=== PATIENT | male | born 1990 | race Caucasian/White ===

== ENCOUNTER 2019-12-01 13:47 | Emergency (ER) | payer SELFPAY ==
--- NOTE | 2019-12-01 15:00 | EDPHYS ---
Physician Documentation [facility] Name: Fabricio Kasper Age: 29 yrs Sex: Male : 1990 Arrival Date: 12/01/2019 Time: 13:54 Bed 18 Private MD: ED Physician Jad Leblanc HPI: 12/01 14:29 This 29 yrs old Male presents to ER via Ambulatory with complaints of Elbow maria teresa Injury. 14:29 The patient or guardian complains of decreased range of motion, pain, that is acute. maria teresa The complaints affect the left elbow. Context: The problem was sustained at a sports field or court, resulted from a direct blow. Onset: The symptoms/episode began/occurred just prior to arrival. Treatment prior to arrival includes: no previous treatment. Modifying factors: The symptoms are alleviated by remaining still, the symptoms are aggravated by movement. Associated signs and symptoms: The patient has no apparent associated signs or symptoms. Severity of symptoms: At their worst the symptoms were moderate, in the emergency department the symptoms are unchanged. Historical: - Allergies: 14:10 PENICILLINS; hb - Home Meds: 14:10 None [Active]; hb - PMHx: 14:10 None; hb - PSHx: 14:10 None; hb - Immunization history:: Adult Immunizations up to date. - Coronavirus screen:: The patient has NOT traveled to [place], [place], or [place] in the past 14 days. The patient has NOT had contact with known/suspected case of Coronavirus? Proceed with normal triage procedures. - Social history:: Smoking status: Patient/guardian denies using tobacco, Stopped _ months ago 1. - Family history:: not pertinent. - Ebola Screening: : No symptoms or risks identified at this time. ROS: 14:29 Constitutional: Negative for fever, chills, and weight loss, Eyes: Negative for injury, maria teresa pain, redness, and discharge, ENT: Negative for injury, pain, and discharge, Neck: Negative for injury, pain, and swelling, Cardiovascular: Negative for chest pain, palpitations, and edema, Respiratory: Negative for shortness of breath, cough, wheezing, and pleuritic chest pain, Abdomen/GI: Negative for abdominal pain, nausea, vomiting, diarrhea, and constipation, Back: Negative for injury and pain, : Negative for injury, bleeding, discharge, and swelling, Skin: Negative for injury, rash, and discoloration, Neuro: Negative for headache, weakness, numbness, tingling, and seizure, Psych: Negative for depression, anxiety, suicide ideation, homicidal ideation, and hallucinations, Allergy/Immunology: Negative for hives, rash, and allergies, Endocrine: Negative for neck swelling, polydipsia, polyuria, polyphagia, and marked weight changes, Hematologic/Lymphatic: Negative for swollen nodes, abnormal bleeding, and unusual bruising. 14:29 MS/extremity: Positive for decreased range of motion, pain, tenderness, of the left elbow. Exam: 14:29 Constitutional: This is a well developed, well nourished patient who is awake, alert, maria teresa and in no acute distress. Head/Face: Normocephalic, atraumatic. Eyes: Pupils equal round and reactive to light, extra-ocular motions intact. Lids and lashes normal. Conjunctiva and sclera are non-icteric and not injected. Cornea within normal limits. Periorbital areas with no swelling, redness, or edema. ENT: Nares patent. No nasal discharge, no septal abnormalities noted. Tympanic membranes are normal and external auditory canals are clear. Oropharynx with no redness, swelling, or masses, exudates, or evidence of obstruction, uvula midline. Mucous membranes moist. Neck: Trachea midline, no thyromegaly or masses palpated, and no cervical lymphadenopathy. Supple, full range of motion without nuchal rigidity, or vertebral point tenderness. No Meningismus. Chest/axilla: Normal chest wall appearance and motion. Nontender with no deformity. No lesions are appreciated. Cardiovascular: Regular rate and rhythm with a normal S1 and S2. No gallops, murmurs, or rubs. Normal PMI, no JVD. No pulse deficits. Respiratory: Lungs have equal breath sounds bilaterally, clear to auscultation and percussion. No rales, rhonchi or wheezes noted. No increased work of breathing, no retractions or nasal flaring. Abdomen/GI: Soft, non-tender, with normal bowel sounds. No distension or tympany. No guarding or rebound. No evidence of tenderness throughout. Back: No spinal tenderness. No costovertebral tenderness. Full range of motion. Male : Normal genitalia with no discharge or lesions. Skin: Warm, dry with normal turgor. Normal color with no rashes, no lesions, and no evidence of cellulitis. Neuro: Awake and alert, GCS 15, oriented to person, place, time, and situation. Cranial nerves II-XII grossly intact. Motor strength 5/5 in all extremities. Sensory grossly intact. Cerebellar exam normal. Normal gait. Psych: Awake, alert, with orientation to person, place and time. Behavior, mood, and affect are within normal limits. 14:29 Musculoskeletal/extremity: ROM: limited active range of motion, limited passive range of motion, Circulation is intact in all extremities. Sensation intact. Compartment Syndrome exam of affected extremity: is normal. DVT Exam: negative Homans' sign noted on exam, no appreciated bluish discoloration, no erythema, no increased warmth, pain, swelling, tenderness. Vital Signs: 14:10 BP 111 / 74; Pulse 93; Resp 16; Temp 97.1; Pulse Ox 99% on R/A; Weight 131.54 kg; hb Height 6 ft. 5 in. (195.58 cm); Pain 6/10; 14:10 Body Mass Index 34.39 (131.54 kg, 195.58 cm) hb MDM: 14:11 Patient medically screened. [facility] 14:29 Data reviewed: vital signs, nurses notes, lab test result(s). [facility] 12/01 14:12 Order name: Elbow Left 3 View XRAY [facility] 12/01 14:12 Order name: Ice pack; Complete Time: 14:12 [facility] 12/01 14:28 Order name: Sling; Complete Time: 16:19 [facility] 12/01 14:58 Order name: Splint - Elbow - Posterior; Complete Time: 16:19 [facility] Administered Medications: 15:06 Drug: Motrin 800 mg Route: PO; sv 16:00 Follow up: Response: No adverse reaction sv 15:06 Drug: [place] 10 mg-325 mg 1 tabs {Note: rass0.} Route: PO; sv 16:00 Follow up: Response: No adverse reaction; Pain is decreased; RASS: Alert and Calm (0) sv Disposition: 12/01/19 14:59 Discharged to Home. Impression: Pain in left elbow, Fracture of head of radius - non displaced. - Condition is Stable. - Discharge Instructions: Joint Pain, Musculoskeletal Pain, Radial Head Fracture, Radial Head Fracture, [id number]. - Prescriptions for Ibuprofen 600 mg Oral Tablet - take 1 tablet by ORAL route every 6 hours As needed take with food; 20 tablet. Tylenol- Codeine #3 300-30 mg Oral Tablet - take 2 tablets by ORAL route every 6 hours As needed; 26 tablet. - Medication Reconciliation Form, Thank You Letter, Antibiotic Education, Prescription Opioid Use form. - Follow up: Private Physician; When: 2 - 3 days; Reason: Recheck today's complaints, Continuance of care, Re-evaluation by your physician. Follow up: Seth Oliver; When: 2 - 3 days; Reason: Recheck today's complaints, Re-evaluation by your physician. - Problem is new. - Symptoms have improved. Signatures: Dispatcher [employer] Anna Espinal RN RN sv Anderson, Corey, MD MD cha Baxter, Heather, RN RN Corrections: (The following items were deleted from the chart) 14:40 14:13 Elbow Left 3 View ordered. [facility] 14:57 14:34 Jose wrap-joint ordered. maria teresa morel 16:02 14:59 12/01/2019 14:59 Discharged to Home. Impression: Pain in left elbow; Fracture of sv head of radius - non displaced. Condition is Stable. Discharge Instructions: Joint Pain, Musculoskeletal Pain. Prescriptions for Ibuprofen 600 mg Oral Tablet - take 1 tablet by ORAL route every 6 hours As needed take with food; 20 tablet, Tylenol-Codeine #3 300-30 mg Oral Tablet - take 2 tablets by ORAL route every 6 hours As needed; 26 tablet. and Forms are Medication Reconciliation Form, Thank You Letter, Antibiotic Education, Prescription Opioid Use. Follow up: Private Physician; When: 2 - 3 days; Reason: Recheck today's complaints, Continuance of care, Re-evaluation by your physician. Follow up: Seth Oliver; When: 2 - 3 days; Reason: Recheck today's complaints, Re-evaluation by your physician. Problem is new. Symptoms have improved. maria teresa
--- NOTE | 2019-12-01 15:00 | ER ---
Nurse's Notes [facility] Name: Fabricio Kasper Age: 29 yrs Sex: Male : 1990 Arrival Date: 12/01/2019 Time: 13:54 Bed 18 Private MD: Diagnosis: Pain in left elbow;Fracture of head of radius-non displaced Presentation: 12/01 14:08 Presenting complaint: Was sparring, felt elbow pop while in an armbar, now c/o left hb elbow pain 6/10. Transition of care: patient was not received from another setting of care. Onset of symptoms was December 01, 2019 at 13:30. Risk Assessment: Do you want to hurt yourself or someone else? Patient reports no desire to harm self or others. Care prior to arrival: None. 14:08 Method Of Arrival: Ambulatory 14:08 Acuity: SOFIA 4 hb 14:17 Initial Sepsis Screen: Does the patient meet any 2 criteria? No. Patient's initial sv sepsis screen is negative. Does the patient have a suspected source of infection? No. Patient's initial sepsis screen is negative. Historical: - Allergies: 14:10 PENICILLINS; hb - Home Meds: 14:10 None [Active]; hb - PMHx: 14:10 None; hb - PSHx: 14:10 None; hb - Immunization history:: Adult Immunizations up to date. - Coronavirus screen:: The patient has NOT traveled to [place], [place], or [place] in the past 14 days. The patient has NOT had contact with known/suspected case of Coronavirus? Proceed with normal triage procedures. - Social history:: Smoking status: Patient/guardian denies using tobacco, Stopped _ months ago 1. - Family history:: not pertinent. - Ebola Screening: : No symptoms or risks identified at this time. Screenin:18 Abuse screen: Denies threats or abuse. Denies injuries from another. Nutritional sv screening: No deficits noted. Tuberculosis screening: No symptoms or risk factors identified. Fall Risk None identified. Assessment: 14:17 General: Appears in no apparent distress. uncomfortable, well developed, Behavior is sv calm, cooperative, appropriate for age. Pain: Complains of pain in left elbow Pain currently is 6 out of 10 on a pain scale. Neuro: Level of Consciousness is awake, alert, obeys commands, Oriented to person, place, time, situation, Moves all extremities. Full function Gait is steady, Speech is normal. Respiratory: Respiratory effort is even, unlabored. Derm: Skin is pink, warm \\T\\ dry. Musculoskeletal: Range of motion: limited in left elbow Reports he bent his left elbow back and felt multiple "pops". 15:00 Reassessment: Pt waiting for xray to be read before discharge. sv 15:06 Reassessment: Patient appears in no apparent distress at this time. No changes from sv previously documented assessment. Patient and/or family updated on plan of care and expected duration. Pain level reassessed. Patient is alert, oriented x 3, equal unlabored respirations, skin warm/dry/pink. 16:01 Reassessment: Patient appears in no apparent distress at this time. Patient and/or sv family updated on plan of care and expected duration. Pain level reassessed. Patient is alert, oriented x 3, equal unlabored respirations, skin warm/dry/pink. Cardiovascular: Capillary refill < 3 seconds in left fingers. Vital Signs: 14:10 BP 111 / 74; Pulse 93; Resp 16; Temp 97.1; Pulse Ox 99% on R/A; Weight 131.54 kg; hb Height 6 ft. 5 in. (195.58 cm); Pain 6/10; 14:10 Body Mass Index 34.39 (131.54 kg, 195.58 cm) hb ED Course: 13:54 Patient arrived in ED. mr 14:09 Triage completed. hb 14:10 Arm band placed on. hb 14:11 Jad Leblanc MD is Attending Physician. maria teresa 14:12 Anna Villegas RN is Primary Nurse. sv 14:18 Awaiting for x-ray. sv 14:18 Patient has correct armband on for positive identification. Bed in low position. Call sv light in reach. Adult w/ patient. Door closed. Ice pack to injury. Head of bed elevated. 14:58 Seth Oliver MD is Referral Physician. maria teresa 15:35 Orthoglass splint: posterior short arm on left arm Sling applied to left arm. sv 15:42 Elbow Left 3 View XRAY In Process Unspecified. EDMS 16:01 No provider procedures requiring assistance completed. Patient did not have IV access sv during this emergency room visit. Administered Medications: 15:06 Drug: Motrin 800 mg Route: PO; sv 16:00 Follow up: Response: No adverse reaction sv 15:06 Drug: [place] 10 mg-325 mg 1 tabs {Note: rass0.} Route: PO; sv 16:00 Follow up: Response: No adverse reaction; Pain is decreased; RASS: Alert and Calm (0) sv Outcome: 14:59 Discharge ordered by . maria teresa 16:01 Discharged to home ambulatory, with family. sv 16:01 Condition: stable 16:01 Discharge instructions given to patient, Instructed on discharge instructions, follow up and referral plans. no drinking with medication, no driving heavy equipment, medication usage, splint care Demonstrated understanding of instructions, follow-up care, medications, splint care, Prescriptions given X 2. 16:02 Patient left the ED. sv Signatures: Dispatcher [employer] Anna Espinal, JASON RN Jad Gutierrez MD MD cha Rivera, Mary mr Baxter, Heather, RN RN
[2019-12-01] MEDS ORDERED: HYDROCODONE/APAP 10/325 TAB ONE (15:06)
[2019-12-01] MEDS ORDERED: IBUPROFEN 400 MG TAB ONE (15:06)
--- NOTE | 2019-12-01 16:10 | RAD REPORT ---
EXAM DESCRIPTION: RAD - Elbow Left 3 View - 12/01/2019 3:41 pm CLINICAL HISTORY: PAIN COMPARISON: No comparisons FINDINGS: Thin lucency is seen in the region of the radial neck, best seen on the lateral projection . This is possibly a small nondisplaced fracture or a normal variant/ artifact. No significant joint effusion is seen, however. Advise correlation with point tenderness in this region.
[2019-12-01 16:30] VITALS: BP 111/74; TEMP 97.1; O2SAT 99
== END 2019-12-01 16:02 | disposition home or self-care (01) ==
LOC: ER 13:47
PROC: 2W39X1Z Immobilization of Left Upper Extremity using Splint (ICD-10-PCS; principal; 2019-12-01)
DX: S52.125A Nondisplaced fracture of head of left radius, initial encounter for closed fracture (principal); W22.8XXA Striking against or struck by other objects, initial encounter; Y93.89 Activity, other specified; Y92.328 Other athletic field as the place of occurrence of the external cause; Z88.0 Allergy status to penicillin
CPT/HCPCS: 99284

== ENCOUNTER 2021-11-22 12:37 | Emergency (ER) | payer SELFPAY ==
--- OUTSIDE RECORDS SUMMARY | 2021-11-22 12:41 | XMS REPORT | Continuity of Care Document ---
:[address] [facility] t Address [facility] [place] [address] Care Team Providers Name Role Phone Corrie WALKER S Attending Clinician Mellisa JASSO Attending Clinician Unavailable Tracie Garcia MD Attending Clinician Doctor Unassigned, Name Attending Clinician Unavailable Problems This patient has no known problems. Allergies, Adverse Reactions, Alerts Allergy Allergy Status Severity Reaction(s) Onset Inactive Treating Comm ents Source Name Type Date Date Clinician PENICILL Drug Active Anaphylaxis 2020-0 Uni vers INS Class 2-04 ity of 00:00: [place] 00 Medical Branch Penicill Propensi Active Anaphylaxis 2020-0 U nivers ins ty to 2-04 ity of adverse 00:00: [place] reaction 00 Medical s Branch Social History Social Habit Start Date Stop Date Quantity Comments Source History [facility] [place] Alcohol Std Drinks Medica l Branch History [facility] Alcohol Binge Medical Bra [facility] Sex Assigned At [facility] Medical Branch Alcohol intake 2019-12-25 2019-12-25 [facility] 00:00:00 00:00:00 Medical Branch History SDOH 2019-12-04 2019-12-04 [facility] [place] Alcohol Frequency 00:00:00 00:00:00 Medical Branch Smoking Status Start Date Stop Date Source Unknown if ever smoked [facility] [place] Never smoker [facility] Medical Branch Medications Ordered Filled Start Stop Current Ordering Indication Dosage Frequency Signature Comments Components Source Medication Medication Date Date Medication? Clinician (SIG) Name Name acetaminoph 2020-0 Yes Take by Un arpit en with 2-25 mouth. ity of codeine 19:33: [place] (TYLENOL-CO 13 Medical DEINE #3 Branch ORAL) ibuprofen 2019-0 Yes 600mg Take 600 Uni vers 600 mg 2-25 mg by ity of tablet 19:33: mouth [place] 13 every 6 Medical (six) Branch hours as needed. acetaminoph 2020-0 Yes Take by Un arpit en with 2-25 mouth. ity of codeine 19:33: [place] (TYLENOL-CO 13 Medical DEINE #3 Branch ORAL) ibuprofen 2020-0 Yes 600mg Take 600 Uni vers 600 mg 2-25 mg by ity of tablet 19:33: mouth [place] 13 every 6 Medical (six) Branch hours as needed. acetaminoph 2020-0 Yes Take by Un arpit en with 2-25 mouth. ity of codeine 19:33: [place] (TYLENOL-CO 13 Medical DEINE #3 Branch ORAL) ibuprofen 2020-0 Yes 600mg Take 600 Uni vers 600 mg 2-25 mg by ity of tablet 19:33: mouth [place] 13 every 6 Medical (six) Branch hours as needed. traMADol 50 2020-0 Yes [id number] 50mg Take 1 Univers mg tablet 2-10 tablet by ity o f 00:00: mouth [place] 00 every 4 Medical (four) Branch hours as needed for Pain (scale 7-10). traMADol 50 2020-0 Yes [id number] 50mg Take 1 Univers mg tablet 2-10 tablet by ity o f 00:00: mouth [place] 00 every 4 Medical (four) Branch hours as needed for Pain (scale 7-10). traMADol 50 2020-0 Yes [id number] 50mg Take 1 Univers mg tablet 2-10 tablet by ity o f 00:00: mouth [place] 00 every 4 Medical (four) Branch hours as needed for Pain (scale 7-10). traMADol 50 2020-0 Yes [id number] 50mg Take 1 Univers mg tablet 2-10 tablet by ity o f 00:00: mouth [place] 00 every 4 Medical (four) Branch hours as needed for Pain (scale 7-10). acetaminoph 2020-0 Yes Take by Un arpit en with 2-04 mouth. ity of codeine 21:37: [place] (TYLENOL-CO 01 Medical DEINE #3 Branch ORAL) ibuprofen 2020-0 Yes 600mg Take 600 Uni vers 600 mg 2-04 mg by ity of tablet 21:37: mouth [place] 01 every 6 Medical (six) Branch hours as needed. acetaminoph 2020-0 Yes Take by Un arpit en with 2-04 mouth. ity of codeine 21:37: [place] (TYLENOL-CO 01 Medical DEINE #3 Branch ORAL) ibuprofen 2020-0 Yes 600mg Take 600 Uni vers 600 mg 2-04 mg by ity of tablet 21:37: mouth [place] every 6 Medical (six) Branch hours as needed. acetaminoph 2020-0 Yes Take by Un arpit en with 2-04 mouth. ity of codeine 21:37: [place] (TYLENOL-CO 01 Medical DEINE #3 Branch ORAL) ibuprofen 2020-0 Yes 600mg Take 600 Uni vers 600 mg 2-04 mg by ity of tablet 21:37: mouth [place] every 6 Medical (six) Branch hours as needed. acetaminoph 2020-0 Yes Take by Un arpit en with 2-04 mouth. ity of codeine 21:37: [place] (TYLENOL-CO 01 Medical DEINE #3 Branch ORAL) ibuprofen 2020-0 Yes 600mg Take 600 Uni vers 600 mg 2-04 mg by ity of tablet 21:37: mouth [place] every 6 Medical (six) Branch hours as needed. Vital Signs Vital Name Observation Time Observation Value Comments Source Systolic blood 2019-12-25 19:29:00 126 mm[Hg[facility] Diastolic blood 2019-12-25 19:29:00 83 mm[Hg] [facility] pressure [facility] Branch Heart rate 2019-12-25 19:29:00 86 /min [facility] Body height 2019-12-25 19:29:00 195.6 cm [facility] Body weight 2019-12-25 19:29:00 131.543 kg [facility] BMI 2019-12-25 19:29:00 34.39 kg/m2 [facility] Body height 2019-12-04 21:35:00 195.6 cm [facility] Body weight 2019-12-04 21:35:00 131.543 kg [facility] BMI 2019-12-04 21:35:00 34.39 kg/m2 [facility] Procedures Procedure Date / Time Performed Performing Clinician Esteban e ASSIGNMENT OF BENEFITS 2019-12-04 21:28:16 Doctor Unassigned, No [facility] Branch Encounters Start End Encounter Admission Attending Care Care Encounter Source Date/Time Date/Time Type Type Clinicians Facility Department ID 2019-12-25 2019[facility]12-25 [facility] [id number] Univers 13:27:38 14:16:43 Visit [facility] [id number] it y of Surgical [id number] Dustin as Specialti [id number] In dical es 198 [facility] 2019-12-25 2019-12-25 Outpatient R CORRIE [facility] [id number] Univers 13:15:00 13:15:00 BARNEY ity of [facility] 2019-12-07 2019-12-07 [facility]phone [facility] [id number] Univers 00:00:00 00:00:00 [facility] [id number] it y of Surgical [id number] Dustin as Specialti [id number] In dical es 198 [facility] 2019-12-04 2019-12-04 [facility] [id number] Univers 15:30:25 15:45:25 Visit [facility] [id number] it y of Surgical [id number] Dustin as Specialti [id number] In dical es 198 [facility] 2019-12-04 2019-12-04 Orders Doctor ALEXANDREA [id number] Univers 00:00:00 00:00:00 Only Unassigned, STEVEN [id number] ity of [facility] [id number] Dustin as [id number] [facility] [address] [place] 2019-12-04 2019-12-04 [facility] [id number] Univers 00:00:00 00:00:00 (Out) [facility] [id number] it y of Surgical [id number] Dustin as Specialti [phone] In dical es 198 [facility] Results This patient has no known results.
[2021-11-22 15:02] LABS: SARS-COV-2 RT PCR POSITIVE (NEGATIVE)
--- NOTE | 2021-11-22 15:24 | EDPHYS ---
Physician Documentation [facility] Name: Fabricio Kasper III Age: 31 yrs Sex: Male : 1990 Arrival Date: 11/22/2021 Time: 12:44 Bed 10 Private MD: ED Physician Ronny Carson HPI: 11/22 13:00 This 31 yrs old Male presents to ER via Ambulatory with complaints of Nasal Drainage, jmm Nausea/Vomiting, smelling problem. 13:00 Onset: The symptoms/episode began/occurred gradually, 2 month(s) ago. Modifying jmm factors: The symptoms are alleviated by nothing, the symptoms are aggravated by nothing. Associated signs and symptoms:. This is a 31 year old male with no chronic medical conditions that presents to the ED with complaints of congestion beginning around thanksgiving. Patient continues to have congestion with abnormal taste. Denies sore throat. . Historical: - Allergies: 12:47 PENICILLINS; kimball - PMHx: 12:47 None; kim[place] - PSHx: 12:47 None; kimball - Immunization history:: Adult Immunizations up to date. - Social history:: Smoking status: Patient denies any tobacco usage or history of. ROS: 13:00 Constitutional: Negative for fever, chills, and weight loss. jmm 13:00 ENT: Positive for sinus congestion. 13:00 All other systems are negative. Exam: 13:00 Constitutional: This is a well developed, well nourished patient who is awake, alert, jmm and in no acute distress. Head/Face: atraumatic. Eyes: EOMI, no conjunctival erythema appreciated ENT: Moist Mucus Membranes Neck: Trachea midline, Supple Chest/axilla: Normal chest wall appearance and motion. Cardiovascular: Regular rate and rhythm. No edema appreciated Respiratory: Normal respirations, no respiratory distress appreciated Abdomen/GI: Non distended, soft Back: Normal ROM Skin: General appearance color normal MS/ Extremity: Moves all extremities, no obvious deformities appreciated, no edema noted to the lower extremities Neuro: Awake and alert, normal gait Psych: Behavior is normal, Mood is normal, Patient is cooperative and pleasant Vital Signs: 12:45 BP 134 / 92; Pulse 85; Resp 18; Temp 97.8(O); Pulse Ox 100% on R/A; Weight 158.76 kg; kimball Height 6 ft. 5 in. (195.58 cm); 13:14 BP 131 / 89; Pulse 82; Resp 18; Pulse Ox 100% on R/A; Pain 0/10; ld1 15:09 BP 129 / 86; Pulse 80; Resp 18; Pulse Ox 100% on R/A; ld1 12:45 Body Mass Index 41.50 (158.76 kg, 195.58 cm) kimball MDM: 13:00 Patient medically screened. [facility] 15:22 Data reviewed: vital signs, nurses notes. Counseling: I had a detailed discussion with shaye the patient and/or guardian regarding: the historical points, exam findings, and any diagnostic results supporting the discharge/admit diagnosis, lab results, the need for outpatient follow up, to return to the emergency department if symptoms worsen or persist or if there are any questions or concerns that arise at home. ED course: Patient is alert and non toxic in appearance in the ED. No signs of resp distress. Patient advised to follow up with pcp and otherwise given strict return precautions. Patient understood and agrees with the plan of care. . 11/22 13:01 Order name: COVID-19/FLU A+B (Document "Date of Onset" if Symptomatic); Complete Time: [facility] 15:17 11/22 13:01 Order name: Strep; Complete Time: 14:01 [facility] 11/22 13:50 Order name: Throat Culture EDMS Administered Medications: No medications were administered Disposition: 18:03 Co-signature as Attending Physician, Ronny Carson MD. rn Disposition Summary: 11/22/21 15:23 Discharge Ordered Location: Home [facility] Condition: Stable [facility] Diagnosis - Coronavirus infection, unspecified [facility] Followup: [facility] - With: Private Physician - When: 2 - 3 days - Reason: Recheck today's complaints, Continuance of care, Re-evaluation by your physician Discharge Instructions: - Discharge Summary Sheet [facility] - COVID-19 [facility] Forms: - Medication Reconciliation Form [facility] - Thank You Letter [facility] - Antibiotic Education [facility] - Prescription Opioid Use [facility] Signatures: Dispatcher [employer] EDMS Steve Hagan PA PA jmm Nieto, Roman, MD MD rn Au-StagerMarleni RN RN kimball
--- NOTE | 2021-11-22 15:24 | ER ---
Nurse's Notes [facility] Name: Fabricio Kasper III Age: 31 yrs Sex: Male : 1990 Arrival Date: 11/22/2021 Time: 12:44 Bed 10 Private MD: Diagnosis: Coronavirus infection, unspecified Presentation: 11/22 12:45 Chief complaint: Patient states: nasal drainage, taste and smell issue. off and on kimball since 2020. Coronavirus screen: Vaccine status: Patient reports being unvaccinated. Ebola Screen: Patient denies travel to an Ebola-affected area in the 21 days before illness onset. Initial Sepsis Screen: Does the patient meet any 2 criteria? No. Patient's initial sepsis screen is negative. Does the patient have a suspected source of infection? No. Patient's initial sepsis screen is negative. Risk Assessment: Do you want to hurt yourself or someone else? Patient reports no desire to harm self or others. Onset of symptoms was 2020. 12:45 Method Of Arrival: Ambulatory kimball 12:45 Acuity: SOFIA 4 kimball Historical: - Allergies: 12:47 PENICILLINS; [place] - PMHx: 12:47 None; [place] - PSHx: 12:47 None; kimball - Immunization history:: Adult Immunizations up to date. - Social history:: Smoking status: Patient denies any tobacco usage or history of. Screenin:14 Abuse screen: Denies threats or abuse. Denies injuries from another. Nutritional ld1 screening: No deficits noted. Tuberculosis screening: No symptoms or risk factors identified. Fall Risk None identified. Assessment: 13:14 General: Appears in no apparent distress. comfortable, Behavior is calm, cooperative, ld1 appropriate for age. Pain: Denies pain. Neuro: Level of Consciousness is awake, alert, obeys commands, Oriented to person, place, time, situation. Cardiovascular: Capillary refill < 3 seconds Patient's skin is warm and dry. Respiratory: Airway is patent Respiratory effort is even, unlabored, Respiratory pattern is regular, symmetrical. GI: Abdomen is round non-distended. : No signs and/or symptoms were reported regarding the genitourinary system. EENT: Reports food smelling bad and loss of taste.. Derm: No signs and/or symptoms reported regarding the dermatologic system. Musculoskeletal: No signs and/or symptoms reported regarding the musculoskeletal system. Vital Signs: 12:45 BP 134 / 92; Pulse 85; Resp 18; Temp 97.8(O); Pulse Ox 100% on R/A; Weight 158.76 kg; kimball Height 6 ft. 5 in. (195.58 cm); 13:14 BP 131 / 89; Pulse 82; Resp 18; Pulse Ox 100% on R/A; Pain 0/10; ld1 15:09 BP 129 / 86; Pulse 80; Resp 18; Pulse Ox 100% on R/A; ld1 12:45 Body Mass Index 41.50 (158.76 kg, 195.58 cm) kimball ED Course: 12:44 Patient arrived in ED. am2 12:47 Triage completed. 12:51 Steve Hagan PA is PHCP. [facility] 12:51 Ronny Carson MD is Attending Physician. [facility] 13:14 Strep Sent. ld1 13:14 COVID-19/FLU A+B (Document "Date of Onset" if Symptomatic) Sent. ld1 13:14 No provider procedures requiring assistance completed. ld1 13:14 Patient has correct armband on for positive identification. Bed in low position. Call ld1 light in reach. Side rails up X2. Pulse ox on. NIBP on. Door closed. Noise minimized. 14:13 Rhonda Powell, RN is Primary Nurse. ld1 16:04 IV discontinued, intact, bleeding controlled, No redness/swelling at site. ld1 16:04 Arm band placed on right wrist. ld1 Administered Medications: No medications were administered Outcome: 15:23 Discharge ordered by . [facility] 16:04 Discharged to home ambulatory. ld1 16:04 Condition: stable 16:04 Discharge instructions given to patient, Instructed on discharge instructions, follow up and referral plans. Demonstrated understanding of instructions, follow-up care. 16:05 Patient left the ED. ld1 Signatures: Steve Hagan PA PA [facility] Rhonda Powell, RN JASON [facility] Marleni Thurman RN RN
[2021-11-22 19:39] VITALS: TEMP 97.8; O2SAT 100
[2021-11-22 19:42] VITALS: BP 129/86
== END 2021-11-22 16:05 | disposition home or self-care (01) ==
LOC: ER 12:37
DX: U07.1 COVID-19 (principal); Z88.0 Allergy status to penicillin
CPT/HCPCS: 0240U; 87070; 87081; 99283

== ENCOUNTER 2025-06-13 23:27 | Emergency (ER) | payer SELFPAY ==
[2025-06-13] MEDS ORDERED: NA CHLORIDE 0.9% 2,000 ML ONE (23:52)
[2025-06-14 00:17] LABS: Anion Gap 8.6 mEq/L (5.0-15.0); BUN Blood Urea Nitrogen 15.0 mg/dL (7-18); Glucose Level 99.0 mg/dL (74-106); Potassium 3.6 mEq/L (3.5-5.1)
--- NOTE | 2025-06-14 01:13 | EDPHYS ---
Physician Documentation [facility] Name: Fabricio Kasper III Age: 34 yrs Sex: Male : 1990 Arrival Date: 06/13/2025 Time: 23:27 Bed 8 Private MD: ED Physician Ronny Carson HPI: 06/13 23:46 This 34 yrs old Male presents to ER via Ambulatory with complaints of Dizziness, rn Weakness, Chills, possible dehydration. 23:46 Patient reports dizziness, generalized weakness, malaise. Patient reports the day rn before was working outside in the heat and thinks got overheated and dehydrated. Reports drinking water but still feels weakness. Normal urination and is clear. No headache or neck stiffness. No cough or shortness of breath. No abdominal pain.. Historical: - Allergies: 23:42 PENICILLINS; bm8 - Home Meds: 23:42 None [Active]; bm8 - PMHx: 23:42 None; bm8 - PSHx: 23:42 None; bm8 - Immunization history:: Adult Immunizations up to date. - Infectious Disease History:: Denies. - Social history:: Smoking status: Patient reports use of chewing tobacco. Patient/guardian denies using alcohol, street drugs. - Family history:: not pertinent. - Hospitalizations: : No recent hospitalization is reported. ROS: 23:46 Constitutional: Negative for fever, and weight loss, Cardiovascular: Negative for chest rn pain, palpitations, and edema, Respiratory: Negative for shortness of breath, cough, wheezing, and pleuritic chest pain, Abdomen/GI: Negative for abdominal pain, vomiting, diarrhea, and constipation, MS/Extremity: Negative for injury and deformity, Neuro: Negative for headache, numbness, tingling, and seizure, Exam: 23:49 Constitutional: This is a well developed, well nourished patient who is awake, alert, rn and in no acute distress. Ambulatory to the room without assistance or difficulty ENT: Dry mucous membranes Neck: No meningismus or neck stiffness Cardiovascular: Regular rate and rhythm . No pulse deficits. Respiratory: No increased work of breathing, no retractions or nasal flaring. Abdomen/GI: Soft, non-tender Neuro: Awake and alert, GCS 15, oriented to person, place, time, and situation. Cranial nerves II-XII grossly intact. Motor strength 5/5 in all extremities. Sensory grossly intact. Cerebellar exam normal. Normal gait. 23:55 ECG was reviewed by the Attending Physician. rn Vital Signs: 23:39 BP 142 / 87; Pulse 62; Resp 17; Temp 98.9; Pulse Ox 100% ; Weight 145.15 kg; Height 6 bm8 ft. 4 in. ; Pain 0/10; 06/14 00:00 BP 132 / 78; Pulse 76; Resp 16; Pulse Ox 97% ; vc1 01:16 BP 130 / 77; Pulse 77; Resp 18; Temp 98.9; Pulse Ox 100% ; Pain 0/10; bm8 06/13 23:39 Body Mass Index 38.95 (145.15 kg, 193.04 cm) bm8 06/13 23:39 Pain Scale: Adult bm8 01:16 Pain Scale: Adult bm8 [place] Coma Score: 06/13 23:59 Eye Response: spontaneous(4). Motor Response: obeys commands(6). Verbal Response: bm8 oriented(5). Total: 15. 06/14 01:16 Eye Response: spontaneous(4). Motor Response: obeys commands(6). Verbal Response: bm8 oriented(5). Total: 15. MDM: 06/13 23:31 Medical Screening Exam initiated rn 06/14 01:11 Differential diagnosis: generalized weakness, hypovolemia, idiopathic dizziness, rn Dehydration. Data reviewed: vital signs, nurses notes, lab test result(s), and as a result, I will discharge patient. Counseling: I had a detailed discussion with the patient and/or guardian regarding the historical points, exam findings, and any diagnostic results supporting the discharge/admit diagnosis, lab results, the need for outpatient follow up, to return to the emergency department if symptoms worsen or persist or if there are any questions or concerns that arise at home. Special discussion: I discussed with the patient/guardian in detail that at this point there is no indication for admission to the hospital. It is understood, however, that if the symptoms persist or worsen the patient needs to return immediately for re-evaluation. 01:11 ED course: I have personally reviewed all of the results, including but not limited to rn blood tests deemed necessary to safely discharge this patient at this time. All results given to and printed out for patient. I personally went over all the results with the patient and answered all questions. Patient will follow-up with PCP and or specialist as discussed. Return precautions given and understood.. 06/13 23:42 Order name: BMP; Complete Time: 00:19 rn 06/13 23:42 Order name: EKG; Complete Time: 23:43 rn 06/13 23:42 Order name: IV Start; Complete Time: 23:57 rn 06/13 23:42 Order name: EKG - Nurse/Tech; Complete Time: 23:57 rn 06/13 23:42 Order name: Cardiac monitoring; Complete Time: 23:57 rn EC/14 23:55 Rate is 80 beats/min. Rhythm is regular. QRS [place] is Normal. [place] interval is normal. QRS rn interval is normal. QT interval is normal. No Q waves. T waves are Normal. No ST changes noted. Clinical impression: Normal ECG. Interpreted by me. Reviewed by me. Administered Medications: 23:57 Drug: NS 0.9% IV 1000 ml IV at 1000 ml once; to be given as a bolus over 60 minutes bm8 Route: IV; Rate: 1000 ml; Site: right antecubital; 06/14 01:17 Follow up: Response: No adverse reaction; IV Status: Completed infusion bm8 06/13 23:57 Drug: NS 0.9% IV 1000 ml IV at 1000 ml once; to be given as a bolus over 60 minutes bm8 Route: IV; Rate: 1000 ml; Site: right antecubital; 06/14 01:17 Follow up: Response: No adverse reaction; IV Status: Completed infusion bm8 Disposition Summary: 06/14/25 01:12 Discharge Ordered Notes: Location: Home rn Problem: new rn Symptoms: have improved rn Condition: Stable rn Diagnosis - Dehydration rn - Heat exhaustion, unspecified rn Followup: rn - With: Private Physician - When: As needed - Reason: Recheck today's complaints, Re-evaluation by your physician Discharge Instructions: - Discharge Summary Sheet rn - Dehydration, Adult rn - Heat Exhaustion rn Forms: - Medication Reconciliation Form rn - Antibiotic belt turner - Prescription Opioid Use rn - Patient Portal Instructions rn - Leadership Thank You Letter rn - Work release form bm8 Signatures: Dispatcher [employer] Ronny Parish MD MD rn McDonald, Brad, RN RN bm8
--- NOTE | 2025-06-14 01:13 | ER ---
Nurse's Notes [facility] Name: Fabricio Kasper III Age: 34 yrs Sex: Male : 1990 Arrival Date: 06/13/2025 Time: 23:27 Bed 8 Private MD: Diagnosis: Dehydration;Heat exhaustion, unspecified Presentation: 06/13 23:39 Chief complaint: Patient states: Yesterday pt was driving home and felt dizzy after bm8 working outside all day. Today still feeling a little dizzy and run down. Pt states he is able to hydrate orally. Coronavirus screen: Vaccine status: Patient reports being unvaccinated. Ebola Screen: Patient negative for fever greater than or equal to 101.5 degrees Fahrenheit, and additional compatible Ebola Virus Disease symptoms Patient denies exposure to infectious person. Patient denies travel to an Ebola-affected area in the 21 days before illness onset. No symptoms or risks identified at this time. 23:39 Method Of Arrival: Ambulatory bm8 23:41 Initial Sepsis Screen: Does the patient meet any 2 criteria? No. Patient's initial bm8 sepsis screen is negative. Does the patient have a suspected source of infection? No. Patient's initial sepsis screen is negative. Risk Assessment: Do you want to hurt yourself or someone else? Patient reports no desire to harm self or others. Onset of symptoms was June 12, 2025. 23:41 Acuity: SOFIA 3 bm8 Triage Assessment: 23:42 General: Appears in no apparent distress. comfortable, Behavior is calm, cooperative, bm8 appropriate for age. Pain: Denies pain. EENT: No deficits noted. No signs and/or symptoms were reported regarding the EENT system. Neuro: Level of Consciousness is awake, alert, obeys commands, Oriented to person, place, time, situation, Appropriate for age Reports dizziness. Cardiovascular: Heart tones S1 S2 present Capillary refill < 3 seconds in bilateral fingers Patient's skin is warm and dry. Respiratory: Airway is patent Respiratory effort is even, unlabored, Respiratory pattern is regular, symmetrical, Breath sounds are clear bilaterally. GI: No signs and/or symptoms were reported involving the gastrointestinal system. : No signs and/or symptoms were reported regarding the genitourinary system. Derm: No signs and/or symptoms reported regarding the dermatologic system. Musculoskeletal: No signs and/or symptoms reported regarding the musculoskeletal system. Historical: - Allergies: 23:42 PENICILLINS; bm8 - Home Meds: 23:42 None [Active]; bm8 - PMHx: 23:42 None; bm8 - PSHx: 23:42 None; bm8 - Immunization history:: Adult Immunizations up to date. - Infectious Disease History:: Denies. - Social history:: Smoking status: Patient reports use of chewing tobacco. Patient/guardian denies using alcohol, street drugs. - Family history:: not pertinent. - Hospitalizations: : No recent hospitalization is reported. Screenin:59 [facility] ED Fall Risk Assessment (Adult) History of falling in the last 3 months, bm8 including since admission No falls in past 3 months (0 pts) Confusion or Disorientation No (0 pts) Intoxicated or Sedated No (0 pts) Impaired Gait No (0 pts) Mobility Assist Device Used No (0 pt) Altered Elimination No (0 pt) Score/Fall Risk Level 0 - 2 = Low Risk Oriented to surroundings, Maintained a safe environment, Educated pt \T\ family on fall prevention, incl call for assistance when getting out of bed, Assessed \T\ reinforced patient's understanding of fall precautions, Hourly rounding (assess needs \T\ fall precautionary measures) done, Used ambulatory aids as needed (educated on \T\ assisted with), Used gait belt as appropriate. Abuse screen: Denies threats or abuse. Nutritional screening: No deficits noted. Tuberculosis screening: No symptoms or risk factors identified. Assessment: 23:43 Reassessment: see triage assessment. bm8 06/14 00:29 Reassessment: Patient appears in no apparent distress at this time. No changes from vc1 previously documented assessment. Patient and/or family updated on plan of care and expected duration. Pain level reassessed. Patient is alert, oriented x 3, equal unlabored respirations, skin warm/dry/pink. 01:16 Reassessment: Patient appears in no apparent distress at this time. Patient and/or bm8 family updated on plan of care and expected duration. Pain level reassessed. Patient is alert, oriented x 3, equal unlabored respirations, skin warm/dry/pink. Patient denies pain at this time. Patient states feeling better. Patient states symptoms have improved. Vital Signs: 06/13 23:39 BP 142 / 87; Pulse 62; Resp 17; Temp 98.9; Pulse Ox 100% ; Weight 145.15 kg; Height 6 bm8 ft. 4 in. ; Pain 0/10; 06/14 00:00 BP 132 / 78; Pulse 76; Resp 16; Pulse Ox 97% ; vc1 01:16 BP 130 / 77; Pulse 77; Resp 18; Temp 98.9; Pulse Ox 100% ; Pain 0/10; bm8 06/13 23:39 Body Mass Index 38.95 (145.15 kg, 193.04 cm) bm8 06/13 23:39 Pain Scale: Adult bm8 01:16 Pain Scale: Adult bm8 [place] Coma Score: 06/13 23:59 Eye Response: spontaneous(4). Motor Response: obeys commands(6). Verbal Response: bm8 oriented(5). Total: 15. 06/14 01:16 Eye Response: spontaneous(4). Motor Response: obeys commands(6). Verbal Response: bm8 oriented(5). Total: 15. ED Course: 06/13 23:30 Patient arrived in ED. jj6 23:31 Ronny Carson MD is Attending Physician. rn 23:39 Cuba Garcia RN is Primary Nurse. bm8 23:42 Triage completed. bm8 23:42 Arm band placed on right wrist. bm8 23:59 Patient has correct armband on for positive identification. Bed in low position. Call bm8 light in reach. Side rails up X2. Client placed on continuous cardiac and pulse oximetry monitoring. NIBP monitoring applied. clinical research monitor on. Pulse ox on. NIBP on. Door closed. Noise minimized. Warm blanket given. Pillow given. Verbal reassurance given. Head of bed elevated. 23:59 No provider procedures requiring assistance completed. Inserted saline lock: 18 gauge bm8 in right antecubital area, using aseptic technique. Blood collected. Flushed with 10 mL NS. Patient maintains SpO2 saturation greater than 95% on room air. 06/14 01:16 Provided Education on: post er care. bm8 01:16 IV discontinued, intact, bleeding controlled, No redness/swelling at site. Pressure bm8 dressing applied. Administered Medications: 06/13 23:57 Drug: NS 0.9% IV 1000 ml IV at 1000 ml once; to be given as a bolus over 60 minutes bm8 Route: IV; Rate: 1000 ml; Site: right antecubital; 06/14 01:17 Follow up: Response: No adverse reaction; IV Status: Completed infusion bm8 06/13 23:57 Drug: NS 0.9% IV 1000 ml IV at 1000 ml once; to be given as a bolus over 60 minutes bm8 Route: IV; Rate: 1000 ml; Site: right antecubital; 06/14 01:17 Follow up: Response: No adverse reaction; IV Status: Completed infusion bm8 Medication: 06/13 23:59 VIS not applicable for this client. bm8 Outcome: 06/14 01:12 Discharge ordered by . rn 01:16 Discharged to home ambulatory, bm8 01:16 Condition: stable 01:16 Discharge instructions given to patient, Instructed on discharge instructions, follow up and referral plans. no drinking with medication, no driving heavy equipment, medication usage, safety practices, Demonstrated understanding of instructions, follow-up care, medications, 01:31 Patient left the ED. bm8 Signatures: Ronny Carson MD MD rn Jeffries, Jennifer [id number] Kelle Landry RN RN vc1 Cuba Garcia RN RN bm8
[2025-06-14 05:28] VITALS: TEMP 98.9
[2025-06-14 05:37] VITALS: BP 130/77; O2SAT 100
== END 2025-06-14 01:31 | disposition home or self-care (01) ==
LOC: ER 23:27
DX: E86.0 Dehydration (principal); T67.5XXA Heat exhaustion, unspecified, initial encounter
CPT/HCPCS: 36415; 80048; 93005; 96360; 99285; J7030